=== PATIENT | female | born 1970 | race Caucasian/White ===

== ENCOUNTER 2016-07-25 16:34 | Emergency (ER) | payer SELFPAY ==
--- NOTE | 2016-07-25 16:48 | ED Physician Documentation ---
General Adult - HISTORIAN Historian: patient - HPI Chief Complaint: Chest Pain Further Comments: yes (Patient states that she woke up with some dizzinsess and has not felt well. Several hours developed in midstarnal area adiates in to back. Lasts for several minutes. No precipitating factor noted. No modifying factors noted. Has been nauseated with it.) - ROS CONST: no problems. denies: fever, sweating CVS/RESP: other (Asthma, histoplasmosis) GI/: abdominal pain (GEERDs). denies: vomiting, nausea, diarrhea, black stools - PAST HX Past History: other (asthma) Other History: other (GERDs, sapatic colon) Surgeries/Procedures: other (arthroscopic left knee, C section x3) Immunizations: referred to PCP Allergies/Adverse Reactions: Allergies Allergy/AdvReac Type Severity Reaction Status Date / Time codeine AdvReac Intermediate Rash Verified 07/25/16 16:49 Home Medications: Ambulatory Orders Medication Instructions Recorded NK [NK] 07/25/16 - SOCIAL HX Smoking History: greater than 1 pack/day Alcohol Use: other (1 pint a day of hard liquior) Drug Use: none - FAMILY HX Family History: Yes (Hx of CHF, DM) - REVIEWED ASSESSMENTS Nursing Assessment Reviewed: Yes Vitals Reviewed: Yes General Adult Physical Exam - PHYSICAL EXAM GENERAL APPEARANCE: mild distress EENT: eye inspection normal, ENT inspection normal NECK: normal inspection RESPIRATORY: no resp distress, chest non-tender, breath sounds normal. No: wheezes, rales, rhonchi CVS: reg rate & rhythm, heart sounds normal, equal pulses ABDOMEN: soft, normal bowel sounds, no distension, tenderness (in the epigastric area). No: rebound, distended, guarding BACK: normal inspection, no CVA tenderness SKIN: warm/dry, normal color EXTREMITIES: non-tender NEURO: mood/affect nml, cognition normal Discharge Clincal Impression: Epigastric pain Referrals: Primary Doctor,No [Primary Care Provider] - 2 Days Additional Instructions: Start taking Prilosec 20mg daily. Avoid caffeine, spicy foods, alcohol and chocolates. Watch for any further blood in vomit. Follow-up with Dr Fry. Home Medications: Ambulatory Orders NK [NK] 07/25/16 Condition: Stable Disposition: 01 HOME, SELF-CARE Decision to Admit: NO Date of Decison to Admit: 07/25/16 Decision Time: 19:04
[2016-07-25] MEDS ORDERED: ONDANSETRON HCL/PF 4 MG/ 2ML VIAL IVP ONE (17:19)
[2016-07-25] MEDS ORDERED: PANTOPRAZOLE SODIUM INJ. 40 MG VIAL ONE (17:26)
[2016-07-25] MEDS ORDERED: 0.9 % SODIUM CHLORIDE 50 ML IV ONE (17:26)
[2016-07-25] MEDS ORDERED: PANTOPRAZOLE SODIUM 40 MG in 0.9 % SODIUM CHLORIDE 50 ML IV SCH (18:00)
[2016-07-25 18:10] LABS: BASOPHILS % 0.6 (0.0-1.5); EOSINOPHILS % 0.4 % (0.0-6.8); MEAN CORPUSCULAR HEMOGLOBIN 37.1 pg (28.0-34.0); MEAN CORPUSCULAR VOLUME 113.9 fl (80.0-100.0); MONOCYTES % 5.6 % (0.0-11.0); NEUTROPHILS # 4.8 # k/uL (1.4-7.7)
[2016-07-25 18:28] LABS: eGFR (African) > 60; eGFR (Non-African) > 60
[2016-07-25 21:49] VITALS: BP 136/75
== END 2016-07-25 19:34 | disposition home or self-care (01) ==
LOC: ED 16:34
DX: R10.13 Epigastric pain (principal); F17.210 Nicotine dependence, cigarettes, uncomplicated
CPT/HCPCS: 80053; 84484; 85025; 93005; J2405; 96374; 99283